=== PATIENT | female | born 1960 | race Caucasian/White ===

== ENCOUNTER 2017-01-05 11:11 | Emergency (ER) | payer OTHER ==
--- NOTE | 2017-01-05 11:36 | EDPHY ---
H & P Time Seen by Provider: 01/05/17 11:23 HPI/ROS: CHIEF COMPLAINT: Left calf swelling HISTORY OF PRESENT ILLNESS: 56-year-old female with no prior history of coagulopathic disorder or thrombus complaining of acute left calf swelling after she returned from a run today. While she was running she had no calf pain and did not feel acute pain or sustain trauma. She is able to continue running as usual. No paresthesia or sensory or motor deficit distally. No pain. No history of similar. No dyspnea. PRIMARY CARE PROVIDER:Rodney REVIEW OF SYSTEMS: A ten point review of systems was performed and is negative with the exception of the items mentioned in the HPI PHYSICAL EXAM (Prior to examination, patient consented to physical exam, hands were washed and my usual and customary physical exam procedures followed) 1) GENERAL: Well-developed, well-nourished, alert and oriented. Appears to be in no acute distress. 2) HEAD: Normocephalic 3) HEENT: sclera anicteric 4) LUNGS: Breathing comfortably. 5) SKIN: intact, no discoloration 6) MUSCULOSKELETAL: there is visible asymmetry of the left calf. There is no discoloration. There is no induration. No erythema. Distally she has DP and PT pulses brisk and present and equal bilaterally with brisk and equal capillary refill. Compartments are soft. Dorsiflexion plantar flexion elicit no pain. Normal color normal temperature bilaterally. No ecchymosis. No cold foot. Smoking Status: Never smoked Constitutional: Initial Vital Signs Temperature (C) 36.9 C 01/05/17 11:16 Heart Rate 73 01/05/17 11:16 Respiratory Rate 16 01/05/17 11:16 Blood Pressure 136/76 H 01/05/17 11:16 O2 Sat (%) 98 01/05/17 11:16 O2 Delivery Mode Room Air Allergies/Adverse Reactions: No Known Allergies Allergy (Unverified 08/16/13 17:24) Home Medications: Medication Instructions Recorded NO HOME MEDS 08/16/13 MDM/Departure - MDM Imaging Results: Imaging Impressions Extremity Venous Study 01/05/17 11:36 Impression: Negative. No deep venous thrombosis. Findings discussed with Emergency Department physician nurses medical assistants [email or web address] at 01/05/2017 12:29. Images reviewed by myself ED Course/Re-evaluation: Re-evaluation with serial exams was recently at 12:30 p.m., discussed the negative imaging results. Her compartments are soft. Doubt compartment syndrome. Doubt arterial thrombus. Plan will be discharge, recommend elevation , cold packs, follow up with her PCP. Usual customary orthopedic precautions instructions provided. Differential Diagnosis: In no particular order including but not limited to compartment syndrome, DVT, muscle strain, dependent edema - Depart Disposition: Home, Routine, Self-Care Clinical Impression: Left calf swelling Condition: Good Instructions: Leg Edema (ED) Additional Instructions: Return to the ER immediately if you experience discoloration, have worsening pain, numbness, tingling, or any other symptoms that concern you. If you received x-rays in the emergency department today, be advised, that ligamentous , tendon, muscular, and other non-bony injury cannot be fully ruled out. Try to keep your affected extremity elevated above the level of your chest, and keep cold packs on the affected area, for the next 48 hours. Referrals: MARIFER WARREN [Primary Care Provider] - As per Instructions
[2017-01-05 11:45] VITALS: TEMP 98.4
[2017-01-05 13:18] VITALS: BP 118/79; PULSE 70; RESP 14; O2SAT 94
== END 2017-01-05 13:19 | disposition home or self-care (01) ==
DX: M79.89 Other specified soft tissue disorders (principal)